=== PATIENT | male | born 1985 | race Caucasian/White ===

== ENCOUNTER 2018-07-31 13:02 | Emergency (ER) | payer BC ==
[~2018-07-31] VITALS: Ht 185.4 cm; Wt 113.4 kg
[~2018-07-31 13:02] MED LIST: CIPROFLOXACIN500 MG PO; DARVOCET N 1001 TAB PO; KEFLEX500 MG PO
[2018-07-31] MEDS ORDERED: CEPHALEXIN500 M1 PO (15:31)
== END 2018-07-31 15:25 | disposition home or self-care (01) ==
LOC: ED 13:02
DX: T63.301A Toxic effect of unspecified spider venom, accidental (unintentional), initial encounter (principal); L53.0 Toxic erythema; R22.0 Localized swelling, mass and lump, head; Y92.89 Other specified places as the place of occurrence of the external cause

== ENCOUNTER → 2019-12-25 | Outpatient (CLI) | payer BC ==
[~2019-12-25] MED LIST changes: +CEPHALEXIN500 M1 PO
== END | disposition home or self-care (01) ==
LOC: US 12:35
PROVIDERS: ATTEND Family Medicine
DX: R10.11 Right upper quadrant pain (principal)

== ENCOUNTER 2022-01-28 23:08 | Emergency (ER) | payer BC ==
[2022-01-28] MEDS ORDERED: SEPTDS PO (23:36)
== END 2022-01-28 23:48 | disposition home or self-care (01) ==
LOC: ED 23:08
DX: L03.312 Cellulitis of back [any part except buttock and flank] (principal); L02.212 Cutaneous abscess of back [any part, except buttock and flank]

== ENCOUNTER → 2023-12-01 | Outpatient (CLI) | payer BC ==
[~2023-12-01] MED LIST changes: +Iodixanol 320 100 ML VIAL IV ONE; +SEPTDS PO
== END | disposition home or self-care (01) ==
LOC: CT 02:58
PROVIDERS: ATTEND Family Medicine
DX: K63.5 Polyp of colon (principal); R63.4 Abnormal weight loss; R53.83 Other fatigue; R10.9 Unspecified abdominal pain